=== PATIENT | female | born 1985 | race Caucasian/White ===

== ENCOUNTER 2017-06-06 14:09 | Emergency (ER) | payer OTHER, SELFPAY ==
[2017-06-06 14:10] VITALS: BP 145/92; PULSE 68; RESP 16; TEMP 36.8; O2SAT 100; BMI 24.1
--- NOTE | 2017-06-06 15:06 | US_ITS ---
STUDY: ULTRASOUND TRANSVAGINAL CLINICAL: Female, 31 years old. Pelvic pain TECHNIQUE: Transvaginal COMPARISON: None. FINDINGS: Normal uterine size measuring 7.8 x 4.0 x 3.9 cm in maximal craniocaudal dimension. There are no myometrial masses. Uterus is retroverted. Normal endometrial thickness measuring 6 mm. There are no endometrial masses, and there is no fluid in the endometrial cavity. Normal uterine cervix. Normal right ovary, measuring 4.1 x 3.6 x 2.2 cm. There is a dominant right ovarian cyst measuring 2.5 x 3.3 x 2.8 cm within omalley and through-transmission. Normal left ovary, measuring 3.2 x 1.8 x 1.5 cm. There are multiple follicles without a dominant cyst. There is a small amount of fluid in the pelvis. US/Transvaginal Non- IMPRESSION: Dominant right ovarian cyst measuring 3.5 x 3.3 x 2.8 cm without evidence of ovarian torsion. Could consider follow-up ultrasound in one to 2 menstrual cycles. Electronically Signed: Sonja Fabian MD at 20:30 EST Tel , Service support ,
--- NOTE | 2017-06-06 15:52 | ED.VISSUMM ---
- ER Visit Summary Date of Service: 06/06/17 Chief Complaint: Pelvic pain History of Present Illness: The patient is a [address] 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 States that she has right lower abdominal pain that began approximately 1 month ago. Is an aching pain is gradually gotten worse. It is 5 out of 10 currently and 8 out of 10 at worst. Is worsened by intercourse and relieved by NSAIDs. She denies any vaginal bleeding or discharge. She has had frequent urination without dysuria. She reports her last menstrual it was proximal me 3 weeks ago and was very heavy. She has never been . She does report that she is felt fatigued for the past month. Physical Examination: Vitals: Stable. Afebrile. General: Well-nourished and well-developed. Head: Normocephalic atraumatic. Neck: Supple, no lymphadenopathy. No JVD. Nontender. Cardiovascular: Regular rate and rhythm. No murmurs. Respiratory: No respiratory distress. Clear to auscultation bilaterally. Abdominal: Soft, moderate right adnexal tenderness, no pain at McBurney's point, nondistended, normal bowel sounds. No guarding, rebound, or peritoneal signs. Pelvic: Refused. Back: Nontender. Extremities: Nontender, no edema. Skin: Normal color, no rash. Neurologic: Alert and oriented ?3. Cranial nerves II through XII are intact. Normal strength and sensation. Psych: Normal affect. Test Results: Urinalysis is normal. Gonorrhea and Chlamydia are negative. test is negative. CBC is normal. Pelvic ultrasound shows a right ovarian cyst that is 3.5 x 3.3 x 2.8 cm with no torsion and good flow. Emergency Department Course and Treatment: Patient refused pain and nausea medications. She is resting comfortably. Treatment Plan: Patient was discussed with Dr. Calderon. She will be discharged instructions to follow-up in 1-2 weeks for another exam. She is placed on naproxen and given a prescription for 12 [place]. Return to the emergency department for any worsening symptoms. Disposition: To home in improved and stable condition. Impression: 1. Right ovarian cyst. This note was generated with [employer]ation software. It may contain incorrect words, spelling, and punctuation that were not noted in review of the chart prior to signing ED Disposition - Plan for ED Patient: Disposition: Home or Assisted Living Chief Complaint: Female C/O Instructions: ED Cyst Ovarian Prescriptions: Hydrocodone Bitart/Apap 5-325 [[place] 5/325] 1 - 2 tablet PO Q4H PRN PRN 3 Days #12 tablet PRN Reason: Pain Naproxen [Naprosyn] 500 mg PO BID PRN #20 tablet Referrals: Silva Calderon MD [STAFF PHYSICIAN] - 1-2 Weeks
[2017-06-06 16:18] LABS: Absolute Lymphocyte Count 3.46 X10^3/ul (0.83-4.51); Absolute Neutrophil Count 6.2 X10^3/uL (2.0-7.7); Basophil# 0.03 X10^3/uL; Basophil% 0.3 % (0-1); Eosinophil# 0.04 X10^3/uL; Eosinophils% 0.4 % (0-5); Hematocrit 41.6 % (37-47); Hemoglobin 14.3 g/dl (12.0-15.0); Lymphocyte # 3.46 X10^3/ul (4.0); Lymphocyte % 32.7 % (19-41); Mean Corp Hgb Conc 34.4 g/gl (32-36); Mean Corpuscular Volume 93.1 fL (81-99); Mean Platelet Vol. 9.5 fl (6.2-12.0); Monocyte# 0.79 X10^3/uL; Monocyte% 7.5 % (0-10); Neutrophil # 6.24 X10^3/uL (2.7-7.7); Neutrophil % 58.8 % (47-70); Platelet Count 253 K/mm3 (150-450); RBC Distribution Width CV 12.3 % (11.6-14.6); RBC Distribution Width SD 41.1 fl (35.1-43.9); Red Blood Count 4.47 M/mm3 (4.2-5.4); White Blood Count 10.6 K/mm3 (4.4-11.0)
[2017-06-06 16:22] LABS: POSITIVE COUNT NO; POSITIVE DIFFERENTIAL NO; POSITIVE MORPHOLOGY NO
[2017-06-06 16:30] LABS: Bacteria 0 SEEN /hpf (None Seen); Mucous, Urine 0 SEEN /hpf (<or=2+); Red Blood Cells-Urine 0 SEEN /hpf (0-5)
[2017-06-06 17:04] LABS: Color, Urine Yellow (Yellow); Glucose, Dipstick Normal (Normal); Ketone-Dipstick Negative (Negative); Leukocyte Esterase-Dipstick 25 /ul (Negative); Nitrite-Dipstick Negative (Negative); Occult Blood-Urine Negative /ul (Negative); Protein-Dipstick Negative (Negative); Specific Gravity, Urine 1.015 (1.002-1.030); Urine Bilirubin Dipstick Negative (Negative); Urine Clarity Sl. Cloudy (Clear); Urine Urobilinogen 1 mg/dl (Normal); Urine pH 6.5 (5.0 - 8.0)
[2017-06-06 17:05] LABS: Pregnancy, Serum, hCG Quali. NEGATIVE Negative (0-9 Nonpreg)
[2017-06-06 17:09] LABS: Chlamydia Trachomatis by PCR Negative (Negative); Neisserai gonorrhoeae by PCR Negative (Negative); Probe Check PASS; Sample Adequacy Control PASS; Specimen Processing Control PASS
[2017-06-06 17:16] LABS: Squamous Epithelial Cells - UA 0-5 SEEN /hpf (5-10)
[2017-06-06 17:19] LABS: White Blood Cells 0-5 SEEN /hpf (0-5)
[2017-06-06] MEDS: Ibuprofen 600 MG Tablet PO (18:05)
[2017-06-06 18:49] VITALS: PULSE 79; RESP 16; O2SAT 98
== END 2017-06-06 18:50 | disposition home or self-care (01) ==
PROVIDERS: Emergency Provider Emergency Medicine; Family Provider Family Medicine; PCP Family Medicine
DX: N83.201 Unspecified ovarian cyst, right side (principal); I10 Essential (primary) hypertension; F32.9 Major depressive disorder, single episode, unspecified; Z72.0 Tobacco use; Z79.899 Other long term (current) drug therapy
CPT/HCPCS: 36415; 76830; 81001; 84703; 85025; 87491; 87591; 93976; 99283

== ENCOUNTER → 2017-12-19 11:56 | Outpatient (CLI) | payer OTHER, SELFPAY ==
[2017-12-19 14:28] LABS: CRP 3.54 mg/L (0.0-3.0); Rheumatoid Factor < 10.0 IU/mL (<15)
[2017-12-19 14:47] LABS: Erythrocyte Sedimentation Rate 5 mm/hr (0-20)
[2017-12-19 15:12] LABS: HIV - WCH Non-Reactive (Nonreactive)
[2017-12-19 16:19] LABS: Chlamydia Trachomatis by PCR Negative (Negative); Probe Check PASS; Sample Adequacy Control PASS; Specimen Processing Control PASS
[2017-12-20 08:54] LABS: Hep B Surface Antibodies Reactive (.); Hep C Antibodies <0.1 s/co ratio (0.0-0.9)
[2017-12-29 04:06] LABS: Cytoplasmic Ab (C-ANCA) <1:20 titer (Neg:<1:20); QNTFERON TB Ag Minus Nil Value < 0 IU/mL (.); QNTFERON TB Ag Value 0.03 IU/mL (.); QNTFERON TB Mitogen Value > 10.00 IU/mL (.); QNTFERON TB Nil Value 0.04 IU/mL (.)
[2017-12-29 11:12] LABS: Angiotensin Convert Enzyme 23 U/L (14-82); HLA B27 Negative (.); Perinuclear Ab (P-ANCA) <1:20 titer (Neg:<1:20); QNTIFERON TB Gold Negative (Negative)
== END ==
PROVIDERS: Family Provider Family Medicine; PCP Family Medicine; Visit Provider Ophthalmology
DX: Z20.1 Contact with and (suspected) exposure to tuberculosis (principal)
CPT/HCPCS: 36415; 71046; 81374; 82164; 85652; 86038; 86140; 86256; 86431; 86480; 86703; 86706; 86803; 87491

== ENCOUNTER → 2018-03-16 21:41 | Outpatient (CLI) | payer OTHER, SELFPAY ==
[2018-03-16 08:38] VITALS: BMI 30.9
[2018-03-23 08:07] LABS: HPV Genotype 16, Aptima Negative (Negative)
[2018-03-23 15:48] LABS: HPV APTIMA, High Risk Positive (Negative); HPV Genotype 18,45 Aptima Negative (Negative)
== END ==
PROVIDERS: Family Provider Family Medicine; PCP Family Medicine; Referring Provider Nurse Practitioner Women's Health; Visit Provider Nurse Practitioner Women's Health
DX: Z12.4 Encounter for screening for malignant neoplasm of cervix (principal)
CPT/HCPCS: 87624; 88175; G0145

== ENCOUNTER → 2018-03-24 12:06 | Outpatient (CLI) | payer OTHER, SELFPAY ==
[2018-03-16 08:38] VITALS: BMI 30.9
--- NOTE | 2018-03-24 12:07 | US_ITS ---
STUDY: ULTRASOUND OF THE FEMALE PELVIS - COMPLETE REASON FOR EXAM: Female, 32 years old. Right ovarian cyst. LMP: None recently. TECHNIQUE: Transabdominal and transvaginal. TECHNICAL QUALITY: Adequate. COMPARISON: June 06, 2017. FINDINGS: The uterus is retroverted and is in a midline position. The uterus measures 6.1 x 4.3 x 3.3 cm. Normal uterine cervix. The endometrium measures 3 mm in thickness, and is hyperechoic. There is no demonstrated endometrial mass. There is no demonstrated myometrial mass. I.U.D. - The patient does not have an I.U.D. The right ovary is visualized. The right ovary measures 2.2 x 2.9 x 1.8 cm. Simple ovarian cyst measuring 1.1 x 0.9 x 0.7 cm decreased in size since the prior study. There is no visualized right adnexal mass or complex lesion. There is normal arterial and normal venous vascularity. The left ovary is visualized. The left ovary measures 2.7 x 1.8 x 2.0 cm. There is no left ovarian cyst or ovarian mass. There is no visualized left adnexal mass or complex lesion. There is normal arterial and normal venous vascularity. Trace free fluid adjacent to the fundus. The pre void volume of the bladder was 426 ml. US/Pelvic (Non ) IMPRESSION: 1.1 cm simple right ovarian cyst suggestive of a dominant follicle, decreased in size since the prior study. Trace free fluid adjacent to the uterus which is a nonspecific finding often related to a ruptured ovarian cyst. Otherwise negative exam. Electronically Signed: Rico Turpin MD at 6:04 EST , Service support ,
--- NOTE | 2018-03-24 12:07 | US_ITS ---
STUDY: ULTRASOUND OF THE FEMALE PELVIS - COMPLETE REASON FOR EXAM: Female, 32 years old. Right ovarian cyst. LMP: None recently. TECHNIQUE: Transabdominal and transvaginal. TECHNICAL QUALITY: Adequate. COMPARISON: June 06, 2017. FINDINGS: The uterus is retroverted and is in a midline position. The uterus measures 6.1 x 4.3 x 3.3 cm. Normal uterine cervix. The endometrium measures 3 mm in thickness, and is hyperechoic. There is no demonstrated endometrial mass. There is no demonstrated myometrial mass. I.U.D. - The patient does not have an I.U.D. The right ovary is visualized. The right ovary measures 2.2 x 2.9 x 1.8 cm. Simple ovarian cyst measuring 1.1 x 0.9 x 0.7 cm decreased in size since the prior study. There is no visualized right adnexal mass or complex lesion. There is normal arterial and normal venous vascularity. The left ovary is visualized. The left ovary measures 2.7 x 1.8 x 2.0 cm. There is no left ovarian cyst or ovarian mass. There is no visualized left adnexal mass or complex lesion. There is normal arterial and normal venous vascularity. Trace free fluid adjacent to the fundus. The pre void volume of the bladder was 426 ml. US/Transvaginal Non- IMPRESSION: 1.1 cm simple right ovarian cyst suggestive of a dominant follicle, decreased in size since the prior study. Trace free fluid adjacent to the uterus which is a nonspecific finding often related to a ruptured ovarian cyst. Otherwise negative exam. Electronically Signed: Rico Turpin MD at 6:04 EST , Service support ,
--- OUTSIDE RECORDS SUMMARY | 2018-05-06 03:44 | XMS RPT_ITS ---
:1985 Author Organization OHIP Support Name Relationship Address Phone [facility] Unavailable [address] + [place] [address] PAR[facility] OT[facility] Unavailable [address] + [place] [address] [facility] Unavailable [address] + [place] [address] [facility] Unavailable [address] + [place] [address] [facility] Unavailable [address] + [place] [address] [facility] Unavailable [address] + [place] [address] [facility] Unavailable [address] + [place] [address] [facility] Unavailable [address] + [place] [address] [facility] Unavailable [address] +[place] [address] [facility] Unavailable [address] +[place] [address] [facility] Unavailable [address] +[place] [address] [facility] Unavailable [address] + [place] [address] SILVESTRE GONZALEZ Unavailable [address] + [place] [address] [facility] Unavailable [address] +[place] [address] [facility] Unavailable [address] + [place] [address] SILVESTRE GONZALEZ Unavailable [address] + [place] [address] Care Team Providers Name Role Phone Abraham Ferreira Primary Care Unavailable Veronika Min Attending Unavailable Ferreira, Abraham Primary Care Unavailable Daniel De La Rosa Attending Unavailable Silva Calderon Attending Unavailable Ferreira, Abraham Referring Unavailable Ferreira, Abraham Primary Care Unavailable Lali, Pat Attending Unavailable Ferreira, Abraham Referring Unavailable Jennifer, George Attending Unavailable Jennifer, George Referring Unavailable Ferreira, Abraham Primary Care Unavailable [place], Pat Attending Unavailable Ferreira, Abraham Referring Unavailable Lali, Pta Attending Unavailable Ferreira, Abraham Primary Care Unavailable Lali, Pat Referring Unavailable [place], Pat Attending Unavailable Lali, Pat Referring Unavailable Ferreira, Abraham Primary Care Unavailable PROBLEMS PROBLEMS DATE TYPE CONDITION / CODE ATTENDING STATUS SOURCE 03/24/2018 Unknown N83.201 - Pat Escalera Active [facility] Unspecified Community ovarian cyst, Hospital right side / Repository N83.201(ICD-10) 03/17/2018 Unknown Z12.4 - Encounter Pat Escalera Active [facility] for screening for Community malignant Hospital neoplasm of Repository cervix / Z12.4(ICD-10) 12/22/2017 Unknown Z77.21 - Contact George Rodriguez Active [facility] with and Community (suspected) Hospital exposure to Repository potentially hazardous body fluids / Z77.21(ICD-10) 12/22/2017 Unknown V15.85 - Personal George Rodriguez Active [facility] history of Community contact with and Hospital (suspected) Repository exposure to potentially hazardous body fluids / V15.85(ICD-9) 06/06/2017 Unknown N83.209 - Daniel De La Rosa Active [place] Unspecified Community ovarian cyst, Hospital unspecified side Repository / N83.209(ICD-10) PROCEDURES PROCEDURES No Procedure Records FoundRESULTS RESULTS TRANSVAGINAL Observed: 03/24/2018 Status: F Source: [place] NON- 12:08 PM [facility] HOSPITAL REPOSITORY [facility] Imaging Services [address] [place] [address] Transvaginal Non- MR#: [id number] Acct: [id number] Name: LAKESHA OTOOLE Rep #: [id number] : 1985 F 32 From: Rico Turpin PCP: Abraham Ferreira MD Status: REG CLI Study: Transvaginal Non- Date of Exam: 03/24/18 Exam# [id number] Ordering Dr: Pat Escalera INSPECTOR MATERIALS AND PROCESSES-C STUDY: ULTRASOUND OF THE FEMALE PELVIS - COMPLETE REASON FOR EXAM: Female, 32 years old. Right ovarian cyst. LMP: None recently. TECHNIQUE: Transabdominal and transvaginal. TECHNICAL QUALITY: Adequate. COMPARISON: June 06, 2017. FINDINGS: The uterus is retroverted and is in a midline position. The uterus measures 6.1 x 4.3 x 3.3 cm. Normal uterine cervix. The endometrium measures 3 mm in thickness, and is hyperechoic. There is no demonstrated endometrial mass. There is no demonstrated myometrial mass. I.U.D. - The patient does not have an I.U.D. The right ovary is visualized. The right ovary measures 2.2 x 2.9 x 1.8 cm. Simple ovarian cyst measuring 1.1 x 0.9 x 0.7 cm decreased in size since the prior study. There is no visualized right adnexal mass or complex lesion. There is normal arterial and normal venous vascularity. The left ovary is visualized. The left ovary measures 2.7 x 1.8 x 2.0 cm. There is no left ovarian cyst or ovarian mass. There is no visualized left adnexal mass or complex lesion. There is normal arterial and normal venous vascularity. Trace free fluid adjacent to the fundus. The pre void volume of the bladder was 426 ml. US/Transvaginal Non- IMPRESSION: 1.1 cm simple right ovarian cyst suggestive of a dominant follicle, decreased in size since the prior study. Trace free fluid adjacent to the uterus which is a nonspecific finding often related to a ruptured ovarian cyst. Otherwise negative exam. Electronically Signed: Rico Turpin MD at 6:04 EST , Service support , CC: ORSA Escalera; Abraham Ferreira MD Pumper Helper: Signed PELVIC (NON ) Observed: 03/24/2018 Status: F Source: [place] 12:08 PM [facility] REPOSITORY [facility] Imaging Services [address] [place] [address] Pelvic (Non ) MR#: [id number] Acct: [id number] Name: LAKESHA OTOOLE Rep #: [id number] : 1985 F 32 From: Rico Turpin PCP: Abraham Ferreira MD Status: REG CLI Study: Pelvic (Non ) Date of Exam: 03/24/18 Exam# [id number] Ordering Dr: Pat Escalera INSPECTOR MATERIALS AND PROCESSES-C STUDY: ULTRASOUND OF THE FEMALE PELVIS - COMPLETE REASON FOR EXAM: Female, 32 years old. Right ovarian cyst. LMP: None recently. TECHNIQUE: Transabdominal and transvaginal. TECHNICAL QUALITY: Adequate. COMPARISON: June 06, 2017. FINDINGS: The uterus is retroverted and is in a midline position. The uterus measures 6.1 x 4.3 x 3.3 cm. Normal uterine cervix. The endometrium measures 3 mm in thickness, and is hyperechoic. There is no demonstrated endometrial mass. There is no demonstrated myometrial mass. I.U.D. - The patient does not have an I.U.D. The right ovary is visualized. The right ovary measures 2.2 x 2.9 x 1.8 cm. Simple ovarian cyst measuring 1.1 x 0.9 x 0.7 cm decreased in size since the prior study. There is no visualized right adnexal mass or complex lesion. There is normal arterial and normal venous vascularity. The left ovary is visualized. The left ovary measures 2.7 x 1.8 x 2.0 cm. There is no left ovarian cyst or ovarian mass. There is no visualized left adnexal mass or complex lesion. There is normal arterial and normal venous vascularity. Trace free fluid adjacent to the fundus. The pre void volume of the bladder was 426 ml. US/Pelvic (Non ) IMPRESSION: 1.1 cm simple right ovarian cyst suggestive of a dominant follicle, decreased in size since the prior study. Trace free fluid adjacent to the uterus which is a nonspecific finding often related to a ruptured ovarian cyst. Otherwise negative exam. Electronically Signed: Rico Turpin MD at 6:04 EST , Service support , CC: ROSA Escalera; Abraham Ferreira MD Pumper Helper: Signed MARKETING PROPOSAL SPECIALIST OFFICE VISIT Observed: 03/16/2018 Status: F Source: [place] REPORT 9:19 AM [facility] [address] [place] [address] OFFICE VISIT Date of Service: 03/16/18 MR#: [id number] Acct: [id number] Name: LAKESHA OTOOLE Rep #: [id number] : 1985 Provider: ROSA Escalera Age/Sex: 32/F Location: [facility] [place] Status: Signed Intake Vital Signs03/16/18 Height 5 ft 6 in 03/16/18 Weight: 191 lb 6 oz 03/16/18 Body Mass Index (BMI) 30.9 03/16/18 Blood Pressure 124/82 H Intake Visit Reasons: NIGHT SWEATS/RIGHT OVARIAN PAIN WITH CYCLES Cocoa Roaster Required: No Is patient in pain?: No Allergies zolpidem [From Ambien] Allergy (Mild, Verified 03/16/18 08:39) Other Medications Metoprolol(XL)Succ [Toprol Xl (Beta Kasia)] 100 mg PO DAILY 09/23/14 [History Confirmed 03/16/18] Aripiprazole [Abilify] 2 mg PO DAILY 06/06/17 [History Confirmed 03/16/18] Clonazepam [Klonopin] 0.5 mg PO QHS PRN PRN 06/06/17 [History Confirmed 03/16/18] Hydrocodone Bitart/Apap 5-325 [Quincy 5/325] 1 - 2 tab PO Q4H PRN PRN 3 Days #12 tab 06/06/17 [Rx Confirmed 03/16/18] Naproxen [Naprosyn] 500 mg PO BID PRN #20 tab 06/06/17 [Rx Confirmed 03/16/18] Venlafaxine HCl [Effexor] 75 mg PO BID 06/06/17 [History Confirmed 03/16/18] buPROPion XL [Wellbutrin Xl] 150 mg PO DAILY 06/06/17 [History Confirmed 03/16/18] trazodone 150 mg tablet 150 mg PO BID 06/11/17 [History Confirmed 03/16/18] levonorgestrel 0.15 mg-ethinyl estradiol 0.03 mg tablet 1 tab PO DAILY #84 tab 03/16/18 [Rx Confirmed 03/16/18] Is last menstrual period known: No Post menopausal: No Patient : No : No Nurse's Note: Pt. states menses is random and no set time or length of time once started PFSH Medical History Anxiety and depression (Acute) hypertension (Acute) Surgical History Benign tumor of tongue (Acute) Family History Grandmother Breast cancer Lupus Diabetes Cancer Thyroid Mother Multiple sclerosis Uncle perfueria Diabetes Father Diabetes Social History Smoking Status: Current every day smoker alcohol intake: current details: social substance use type: does not use caffeine: Yes what type of physical activity do you participate in: none seatbelt use: always do you feel safe at home: Yes additional social history: Patient works at the [employer] Professor HPI NIGHT SWEATS/RIGHT OVARIAN PAIN WITH CYCLES: Details: LAKESHA OTOOLE is a 32 year old who presents for new patient with lower right pelvic pain that has been ongoing since May. At that time she had right ovarian cyst. States pain improved and now has returned. She is on Aviane for control of cyst but last 1-2 months has had spotting almost every day and does not miss pills. She does still smoke. Her BP has been controlled with meds. She is in a long term care social worker relationship and declines STD testing. She is having vaginal odor and has had BV in past Female Reproductive History Questions: Metorrhagia: No, Sexually active: Yes, Dyspareunia: No, PCB: No Pregancy History 0 Elective abortions Hx Para Spontaneous abortions ROS Const Constitutional: Reports system reviewed and no additional complaints, except as docu GI GI: Denies abdominal pain or change in bowel habits Exam Const General: cooperative, healthy appearing, no acute distress Nutritional Appearance: average body habitus Orientation: oriented x3 General: bladder normal to palpation External Female Exam: normal external appearance, normal appearance of the urethra Urethra: normal appearance of the urethra Speculum Exam - Vagina: normal appearance of the vagina, normal vaginal discharge, nontender, no lesions Speculum Exam - Cervix: normal appearance of the cervix (pap screen), other (smooth, nonfriable) Bimanual Exam- Vagina AND Uterus: bladder normal to palpation, normal bimanual exam, uterine size normal, uterine shape normal, uterine mobility normal, uterus non-tender Bimanual Exam- Adnexa, other: normal adnexae, no adnexal masses, adnexae non-tender Assessment AND Plan Problems 1. Right ovarian cyst N83.201 repeat us in end of june beginning of july 2. Pelvic pain R10.2 3. Pap smear for cervical cancer screening Z12.4 4. Oral contraceptive pill surveillance Z30.41 Plan Will change to Levora next cycle Pelvic ultrasound Pap HEMANTH BV-call only if positive She will report back if OCP not helpful or further irregular bleeding with OCP Discussed risks of smoking and OCP use. She wishes to proceed. BP is controlled RTO 1 year, prn with problems Orders Orders: Medications New: Discontinued: levonorgestrel-ethinyl estrad 0.1-20 mg-mcg (Aviane) Discon1 tab PO QDAY 28 tabs 12RF tinued Reason: Order Changed Coding Level of Care Code Off vis,new,level 3 Diagnoses Right ovarian cyst N83.201 Pelvic pain R10.2 Pap smear for cervical cancer screening Z12.4 Oral contraceptive pill surveillance Z30.41 03/16/18918 <Electronically signed by Pat ORDAZ> Date Pat ORDAZ Cosigner Signature: Date (if applicable) CC: PAP IG HPV APTIMA Collected: 03/16/2018 Status: F Source: [place] 16/18,45 9:00 AM [facility] REPOSITORY Order Comment: CYTOLOGY INFORMATION: - CLINICAL INFORMATION: ANNUAL - DATE LMP/MENOPAUSE: - COLLECTION VIAL: Thin Prep Vial - HEEL SANDER RUBBER SOURCE: CERVICAL - COLLECTION TECHNIQUE: BRUSH/SPATULA Specimen Comment: [id number] Specimen Comment: No. of containers..01 ThinPrep Vial TYPE CODE TESTS RESULT OUT OF RANGE REFERENCE UNITS LAB L7400.0800 . Normal DIAGN Comment Result Comment: NEGATIVE FOR INTRAEPITHELIAL LESION AND MALIGNANCY. FUNGAL ORGANISMS MORPHOLOGICALLY CONSISTENT WITH SHABANA SPECIES ARE PRESENT. LAB L7400.0900 . Normal ADEQ Comment Result Comment: Satisfactory for evaluation. Endocervical and/or squamous metaplastic cells (endocervical component) are present. LAB L7400.1400 . Normal PERFORM Comment Result Comment: eLtty Barker, Principal Java Software Engineer (ASCP) LAB L7400.2575 . Normal TEST METHOD Comment Result Comment: This liquid based ThinPrep(R) pap test was screened with the use of an image guided system. LAB L7400.2600 . Normal . COMM LAB L7400.2700 . Normal PAPSMR Comment Result Comment: The Pap smear is a screening test designed to aid in the detection of premalignant and malignant conditions of the uterine cervix. It is not a diagnostic procedure and should not be used as the sole means of detecting cervical cancer. Both false-positive and false-negative reports do occur. LAB L7400.2760 Negative High HPV APTIMA, HR Positive Result Comment: This test detects fourteen high-risk HPV types (16/18/31/33/35/39/45/ 51/52/56/58/59/66/68) without differentiation. LAB L7400.2940 Negative Normal HPV Genotype Negative 16 LAB L7400.2945 Negative Normal HPV Viki 18,45 Negative Result Comment: Performed at: [address] [id number] Forms Designer: Meghana Mulligan MD, Phone: [phone] Performed at: =[address], [place] [id number] Forms Designer: Meghana Mulligan MD, Phone: [phone] Performed By: #### L7400.0280 #### [facility] (refer to report for specific site) refer to report for address and phone number CHEST PA AND LATERAL Observed: 12/19/2017 Status: F Source: [place] 12:36 PM [facility] REPOSITORY [facility] Imaging Services [address] [place] [address] Chest PA and Lateral MR#: [id number] Acct: [id number] Name: LAKESHA OTOOLE Rep #: [id number] : 1985 F 32 From: Aramis Singer MD PCP: Abraham Ferreira MD Status: REG CLI Study: Chest PA and Lateral Date of Exam: 12/19/17 Exam# [id number] Ordering Dr: George Rodriguez MD STUDY: X-RAY CHEST REASON FOR EXAM: Female, 32 years old. Possible TB exposure TECHNIQUE: 2 views COMPARISON: None. FINDINGS: The lungs are clear and expanded. No fibrocavitary or fibrocalcific changes in the lungs There is no demonstrated pleural abnormality. Normal size heart. Normal mediastinum and korin. Normal visualized pulmonary arteries. Normal visualized aortic arch and descending thoracic aorta. Normal visualized thoracic spine. Normal visualized ribs, clavicles, and shoulders. There is no demonstrated abnormality of the visualized soft tissue structures of the upper abdomen. RAD/Chest PA and Lateral IMPRESSION: Normal x-ray examination of the chest. No acute findings in the lung Electronically Signed: Aramis Singer, at 23:52 EDT Tel , Service support , CC: Abraham Ferreira MD; George Rodriguez MD Pumper Helper: Signed HIV - [facility] Collected: 12/19/2017 Status: F Source: [place] 12:21 PM [facility] REPOSITORY TYPE CODE TESTS RESULT OUT OF RANGE REFERENCE UNITS LAB L3890.6005 Nonreactive Normal HIV - [facility] Non-Reactive Performed By: #### L3890.6005 #### [facility] [address] [place], [place], [address] CHLAMYDIA PCR (WC) Collected: 12/19/2017 Status: F Source: [place] 12:18 PM [facility] REPOSITORY Order Comment: Order Date: 12/11/17 Order Info: [id number] - CHLDNAP TYPE CODE TESTS RESULT OUT OF RANGE REFERENCE UNITS LAB L8200.2100 Negative Normal Chlam Negative Trac PCR Performed By: #### L8200.2019 #### [facility] [address] [place], [place], [address] #### L3100.0528, L3100.0625 #### [facility] (refer to report for specific site) refer to report for address and phone number HEP B SURFACE Collected: 12/19/2017 Status: F Source: [place] ANTIBODIES 12:18 PM [facility] REPOSITORY Order Comment: Order Date: 12/11/17 Order Info: [id number] - HEBSAB Order Info: 0363-1 - HECAB TYPE CODE TESTS RESULT OUT OF RANGE REFERENCE UNITS LAB L3100.0528 . Normal Hep B Reactive Merlin AB Result Comment: Non Reactive: Inconsistent with immunity, less than 10 mIU/mL Reactive: Consistent with immunity, greater than 9.9 mIU/mL Performed By: #### L8200.2019 #### [facility] [address] [place], [place], [address] #### L3100.0528, L3100.0625 #### [facility] (refer to report for specific site) refer to report for address and phone number HEPATITIS C ANTIBODIES Collected: 12/19/2017 Status: F Source: [place] 12:18 PM [facility] REPOSITORY Order Comment: Order Date: 12/11/17 Order Info: [id number] - HEBSAB Order Info: 0363-1 - HECAB TYPE CODE TESTS RESULT OUT OF RANGE REFERENCE UNITS LAB L3100.0650 0.0-0.9 s/co ratio Normal HEP C AB <0.1 Result Comment: Negative: < 0.8 Indeterminate: 0.8 - 0.9 Positive: > 0.9 The CDC recommends that a positive HCV antibody result be followed up with a HCV Nucleic Acid Amplification test ([id number]). Performed at: [facility] [id number] Forms Designer: Taran Lantigua PhD, Phone: [phone] Performed By: #### L8200.2020 #### [facility] [address] [facility] [place], [address] #### L3100.0528, L3100.0625 #### [facility] (refer to report for specific site) refer to report for address and phone number CRP Collected: 12/19/2017 Status: F Source: [place] 12:02 [facility] REPOSITORY TYPE CODE TESTS RESULT OUT OF RANGE REFERENCE UNITS LAB L501.6710 0.0-3.0 mg/L High 3.54 C-REACTIVE PROT Result Comment: C-Reactive Protein (CRP) provides useful information for the diagnosis, therapy and monitoring of inflammatory processes and associated diseases. For the evaluation of Relative Risk for Cardiovascular Disease, a High Sensitivity CRP (HSCRP) should be ordered. Performed By: #### L501.6710, L505.7010 #### [facility] [address] [place] [address]. [facility] [address] RHEUMATOID FACTOR Collected: 12/19/2017 Status: F Source: [place] 12:02 PM [facility] REPOSITORY TYPE CODE TESTS RESULT OUT OF RANGE REFERENCE UNITS LAB L505.7010 <15 IU/mL Normal RHEUMATOID FAC < 10.0 Performed By: #### L501.6710, L505.7010 #### [facility] [address] [facility] [place], [address] ERYTHROCYTE SED RATE Collected: 12/19/2017 Status: F Source: [place] 12:02 PM [facility] REPOSITORY TYPE CODE TESTS RESULT OUT OF RANGE REFERENCE UNITS LAB L102.0000 0-20 mm/hr Normal SED RATE 5 Performed By: #### L101.9900 #### [facility] [address] [place], [address] MISCELLANEOUS LAB Collected: 12/19/2017 Status: F Source: [place] PROCEDURE 12:02 PM [facility] REPOSITORY Order Comment: Comments: [id number] TRP PALLIDUM AB RT TIGER Test(s) Ordered: [id number] TRP PALLIDUM AB RT TIGER TYPE CODE TESTS RESULT OUT OF RANGE REFERENCE UNITS LAB L801.1541 Normal [facility] LAB TEST Result Comment: TEST RESULT LIMITS Treponema pallidum Antibodies Negative Negative TESTING PERFORMED AT [facility]. ORIGINAL REPORT ON FILE IN LAB CONTAINS ADDITIONAL TEST SITE INFORMATION. Performed By: #### L801.1541 #### [facility] [address] [place], [address] ANGIOTENSIN CONVERT Collected: 12/19/2017 Status: F Source: [place] ENZYME 12:02 PM [facility] REPOSITORY TYPE CODE TESTS RESULT OUT OF RANGE REFERENCE UNITS LAB L3100.6900 14-82 U/L [place] [id number] Result Comment: Performed at: - [facility] [id number] Forms Designer: Taran Lantigua PhD, Phone: [phone] Performed at: - [facility] [id number] Forms Designer: Stephon Baer PhD, Phone: [phone] Performed By: #### L3100.6900, L3300.1200, L3400.7000, L3410.1400 #### [facility] (refer to report for specific site) refer to report for address and phone number ANCA Collected: 12/19/2017 Status: F Source: [place] 12:02 PM [facility] REPOSITORY TYPE CODE TESTS RESULT OUT OF RANGE REFERENCE UNITS LAB L3300.1225 Neg:<1:20 titer CYTOPLASMIC Normal Ab <1:20 LAB L3300.1250 Neg:<1:20 titer PERINUCLEAR Normal Ab <1:20 Result Comment: The presence of positive fluorescence exhibiting P-ANCA or C-ANCA patterns alone is not specific for the diagnosis of Tk's Granulomatosis (WG) or microscopic polyangiitis. Decisions about treatment should not be based solely on ANCA IFA results. The International ANCA Group Consensus recommends follow up testing of positive sera with both ID- 3 and MPO-ANCA enzyme immunoassays. As many as 5% serum samples are positive only by EIA. Ref. AM J Clin Pathol 1999;111:507-513. LAB L3300.1285 Neg:<1:20 titer Normal Atypical pANCA <1:20 Result Comment: The atypical pANCA pattern has been observed in a significant percentage of patients with ulcerative colitis, primary sclerosing cholangitis and autoimmune hepatitis. Performed By: #### L3100.6900, L3300.1200, L3400.7000, L3410.1400 #### [facility] (refer to report for specific site) refer to report for address and phone number QUANTIFERON TB-GOLD Collected: 12/19/2017 Status: F Source: [place] 12:02 [facility] REPOSITORY TYPE CODE TESTS RESULT OUT OF RANGE REFERENCE UNITS LAB L3400.7025 Negative Normal QFT Negative TB GOLD Result Comment: The specimen received for QuantiFERON testing was incubated by the ordering institution. Specific procedures outlined in our Directory of Services and in the package insert for the QuantiFERON Gold (In Tube) test must be followed to enable for proper stimulation of cells for the production of interferon gamma. LAB L3400.7035 . Normal QFT TB Comment POS CRIT Result Comment: To be considered positive a specimen should have a TB Ag minus Nil value greater than or equal to 0.35 IU/mL and in addition the TB Ag minus Nil value must be greater than or equal to 25% of the Nil value. There may be insufficient information in these values to differentiate between some negative and some indeterminate test values. LAB L3400.7045 . IU/mL Normal QFT TB AB 0.03 VALUE LAB L3400.7055 . IU/mL Normal QFT NIL VALUE 0.04 LAB L3400.7065 . IU/mL > Normal QFT MITOGEN 10.00 EVELAI LAB L3400.7075 . IU/mL < Normal QFT AG - NIL 0 LAB L3400.7085 . Normal QFT TB INTER Comment Result Comment: The QuantiFERON TB Gold (in Tube) assay is intended for use as an aid in the diagnosis of TB infection. Negative results suggest that there is no TB infection. In patients with high suspicion of exposure, a negative test should be repeated. A positive test indicates infection with Mycobacterium tuberculosis. Among individuals without tuberculosis infection, a positive test may be due to exposure to M. kansasii, M. szulgai or M. marinum. On the Internet, go to cdc.gov/tb for further details. Performed By: #### L3100.6900, L3300.1200, L3400.7000, L3410.1400 #### [facility] (refer to report for specific site) refer to report for address and phone number HLA B27 Collected: 12/19/2017 Status: F Source: [place] 12:02 PM [facility] REPOSITORY TYPE CODE TESTS RESULT OUT OF RANGE REFERENCE UNITS LAB L3410.1500 . Normal HLA Negative B27 Result Comment: HLA-B*27 Negative B27 allele interpretation for all loci based on IMGT/HLA database version 3.27 This test was developed and its performance characteristics determined by [facility]. It has not been cleared or approved by the Food and Drug Administration. [facility] CLIA ID Number [id number] This test was performed using PCR (Polymerase Chain Reaction)/SSOP (Sequence Specific Oligonucleotide Probes) technique. SBT (Sequence Based Typing) and/or SSP (Sequence Specific Primers) may be used as supplemental methods when necessary. Please contact [facility] Customer Service at if you have any questions. Director of [facility] Laboratory Dr Stephon Baer, PhD Performed By: #### L3100.6900, L3300.1200, L3400.7000, L3410.1400 #### [facility] (refer to report for specific site) refer to report for address and phone number ANTINUCLEAR ANTIBODY, Collected: 12/19/2017 Status: F Source: [place] IFA 11:56 AM [facility] REPOSITORY TYPE CODE TESTS RESULT OUT OF RANGE REFERENCE UNITS LAB L3100.8000 Normal NADYA test Result Comment: TEST RESULT LIMITS Antinuclear Antibodies, IFA Negative Negative <1:80 Borderline 1:80 Positive >1:80 TESTING PERFORMED AT [facility]. ORIGINAL REPORT ON FILE IN LAB CONTAINS ADDITIONAL TEST SITE INFORMATION. Performed By: #### L3100.7950 #### [facility] (refer to report for specific site) refer to report for address and phone number [employer]ETING PROPOSAL SPECIALIST OFFICE VISIT Observed: 06/11/2017 Status: F Source: [place] REPORT 9:54 PM [facility] 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 Is patient in pain?: Yes Allergies zolpidem [From Ambien] Allergy (Mild, Verified 06/11/17 11:14) Other Medications Metoprolol(XL)Succ [Toprol Xl (Beta Kasia)] 100 mg PO DAILY 09/23/14 [History Confirmed 06/11/17] Aripiprazole [Abilify] 2 mg PO DAILY 06/06/17 [History Confirmed 06/11/17] BuPROPion (XL) [Wellbutrin Xl] 150 mg PO DAILY 06/06/17 [History Confirmed 06/11/17] Clonazepam [Klonopin] 0.5 mg PO QHS PRN PRN 06/06/17 [History Confirmed 06/11/17] Hydrocodone Bitart/Apap 5-325 [Quincy 5/325] 1 - 2 tab PO Q4H PRN PRN 3 Days #12 tab 06/06/17 [Rx Confirmed 06/11/17] Naproxen [Naprosyn] 500 mg PO BID PRN #20 tab 06/06/17 [Rx Confirmed 06/11/17] Venlafaxine HCl [Effexor] 75 mg PO BID 06/06/17 [History Confirmed 06/11/17] levonorgestrel-ethinyl estradiol 0.1 mg-20 mcg tablet 1 tab PO QDAY #28 tab 06/11/17 [Rx Confirmed 06/11/17] metronidazole 500 mg tablet 500 mg PO BID 7 Days #14 tab 06/11/17 [Rx Confirmed 06/11/17] trazodone 150 mg tablet 150 mg PO BID 06/11/17 [History Confirmed 06/11/17] Is last menstrual period known: Yes Last Menstral Period: 06/10/17 Post menopausal: No Patient : No : No PFSH Medical History Anxiety and depression (Acute) Benign tumor of tongue (Acute) hypertension (Acute) Family History Grandmother Breast cancer Lupus Diabetes Cancer Thyroid Mother Multiple sclerosis Uncle perfueria Diabetes Father Diabetes Social History Smoking Status: Current every day smoker alcohol intake: current details: social substance use type: does not use caffeine: Yes what type of physical activity do you participate in: none seatbelt use: always do you feel safe at home: Yes additional social history: Patient works at the [employer] Professor HPI ER follow up: Details: LAKESHA OTOOLE is a 31 year old who presents for a month long history of right sided lower pelvic pain. she had an us done in the ER that showed a right 3 cm cyst on the ovary with no evidence of torsion. Intermittently right lower pain dull aching at times changed to sharp shooting stabbing, now throbbing. This limits her activities at work. She hasn't had this before, she was on continuous progestin control for 5 years and she had breakthrough bleeding for the last several months and then stopped taking it. Female Reproductive History Last Menstral Period: 06/10/17 Pregancy History 0 Elective abortions Hx Para Spontaneous abortions ROS Const Constitutional: Reports system reviewed and no additional complaints, except as docu GI GI: Reports as per HPI : Reports as per HPI Exam Const General: cooperative, healthy appearing, comfortable, no acute distress, well developed Nutritional Appearance: average body habitus Orientation: alert HENMT Head: normal to inspection, normocephalic Neck Neck: normal visual inspection, trachea midline Thyroid: thyroid normal Resp Effort AND Inspection: normal respiratory effort GI Inspection: normal to inspection, non-distended Palpation: soft, no hepatosplenomegaly Skin General: no rashes or lesions noted Assessment AND Plan Problems 1. Right ovarian cyst N83.201 repeat us in end of june beginning of july Plan discussed with patient likely diagnosis of hemorrhagic cyst, reveiwed torsion precautions and recommend anti inflammatories and fu imaging. discussed control and patient would like to go on for cycle control. encouraged tobacco cessation and control of HTN. discussed risk of blood clots on pill and recommend bp follow up. Orders Orders: Medications New: Coding Level of Care Code Off vis,new,level 4 Diagnoses Right ovarian cyst N83.201 06/11/17 2154 <Electronically signed by Silva Calderon MD> Date Silva Calderon MD Cosigner Signature: Date (if applicable) CC: EMERGENCY DEPARTMENT Observed: 06/09/2017 Status: F Source: [place] SUMMARY 1:11 AM [facility] REPOSITORY [facility] Medical Records Department [address] [place] [address] Emergency Department Summary 06/06/17 1552 MR#: [id number] Acct: [id number] Name: LAKESHA OTOOLE Rep #: [id number] : 1985 31 From: Daniel De La Rosa MD PCP: Abraham Ferreira MD Status: DEP ER - ER Visit Summary Date of Service: 06/06/17 Chief Complaint: Pelvic pain History of Present Illness: The patient is a [address] 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 States that she has right lower abdominal pain that began approximately 1 month ago. Is an aching pain is gradually gotten worse. It is 5 out of 10 currently and 8 out of 10 at worst. Is worsened by intercourse and relieved by NSAIDs. She denies any vaginal bleeding or discharge. She has had frequent urination without dysuria. She reports her last menstrual it was proximal me 3 weeks ago and was very heavy. She has never been . She does report that she is felt fatigued for the past month. Physical Examination: Vitals: Stable. Afebrile. General: Well-nourished and well-developed. Head: Normocephalic atraumatic. Neck: Supple, no lymphadenopathy. No JVD. Nontender. Cardiovascular: Regular rate and rhythm. No murmurs. Respiratory: No respiratory distress. Clear to auscultation bilaterally. Abdominal: Soft, moderate right adnexal tenderness, no pain at McBurney's point, nondistended, normal bowel sounds. No guarding, rebound, or peritoneal signs. Pelvic: Refused. Back: Nontender. Extremities: Nontender, no edema. Skin: Normal color, no rash. Neurologic: Alert and oriented 3. Cranial nerves II through XII are intact. Normal strength and sensation. Psych: Normal affect. Test Results: Urinalysis is normal. Gonorrhea and Chlamydia are negative. test is negative. CBC is normal. Pelvic ultrasound shows a right ovarian cyst that is 3.5 x 3.3 x 2.8 cm with no torsion and good flow. Emergency Department Course and Treatment: Patient refused pain and nausea medications. She is resting comfortably. Treatment Plan: Patient was discussed with Dr. Calderon. She will be discharged instructions to follow-up in 1-2 weeks for another exam. She is placed on naproxen and given a prescription for 12 Quincy. Return to the emergency department for any worsening symptoms. Disposition: To home in improved and stable condition. Impression: 1. Right ovarian cyst. This note was generated with [employer] software. It may contain incorrect words, spelling, and punctuation that were not noted in review of the chart prior to signing ED Disposition - Plan for ED Patient: Disposition: Home or Assisted Living Chief Complaint: Female C/O Instructions: ED Cyst Ovarian Prescriptions: Hydrocodone Bitart/Apap 5-325 [Quincy 5/325] 1 - 2 tablet PO Q4H PRN PRN 3 Days #12 tablet PRN Reason: Pain Naproxen [Naprosyn] 500 mg PO BID PRN #20 tablet Referrals: Silva Calderon MD [STAFF PHYSICIAN] - 1-2 Weeks What to do if you have Problems For any increased pain, shortness of breath, bleeding, nausea or vomiting, chest pain, or any unexpected problems, contact your Primary Care Provider. Call [facility] ([phone]) or report to the closest Emergency Room. Call 911 if necessary. 06/09/17 0111 <Electronically signed by Daniel De La Rosa MD> Date Daniel De La Rosa MD Cosigner Signature (If Indicated): Date CC: Abraham Ferreira MD CBC W/DIFF, AUTOMATED Collected: 06/06/2017 Status: F Source: HAYLEE 4:06 PM [facility] REPOSITORY TYPE CODE TESTS RESULT OUT OF RANGE REFERENCE UNITS LAB L100.1000 4.4-11.0 K/mm3 Normal WBC 10.6 LAB L100.1200 4.2-5.4 M/mm3 Normal RBC 4.47 LAB L100.1300 12.0-15.0 g/dl Normal HGB 14.3 LAB L100.1400 37-47 % Normal HCT 41.6 LAB L100.1500 81-99 fL Normal MCV 93.1 LAB L100.1600 27.0-32.0 pg Normal MCH 32.0 LAB L100.1700 32-36 g/gl Normal MCHC 34.4 LAB L100.1810 11.6-14.6 % Normal RDW CV 12.3 LAB L100.1820 35.1-43.9 fl Normal RDW SD 41.1 LAB L100.1900 150-450 K/mm3 Normal PLT 253 LAB L100.2000 6.2-12.0 fl Normal MPV 9.5 LAB L100.2100 47-70 % Normal NEUT% 58.8 LAB L100.2200 19-41 % Normal LY% 32.7 LAB L100.2300 0-10 % Normal MONO% 7.5 LAB L100.2400 0-5 % Normal EO% 0.4 LAB L100.2500 0-1 % Normal BASO% 0.3 LAB L100.2550 0.0-0.9 % Normal IM GRAN % 0.300 Result Comment: IG% - Immature Granulocytes (promyelocytes, myelocytes and metamyelocytes) > 1% indicates that a LEFT SHIFT is Present. LAB L100.2620 2.0-7.7 X10 3/uL Normal Absolute Neut 6.2 LAB L100.2720 0.83-4.51 X10 3/ul Normal Absolute Lymph 3.46 Performed By: #### L100.0100 #### [facility] [address] [place], [place], [address] ,SERUM,HCG QUALI. Collected: Status: F Source: RIC[place]AND 06/06/2017 4:06 PM [facility] REPOSITORY TYPE CODE TESTS RESULT OUT OF REFERENCE UNITS RANGE LAB L700.7000 0-9 Nonpreg Negative Normal HCGSQUAL NEGATIVE LAB L700.6700 =>Qualitative mIU/mL Normal HCG Qual < 1 triggr Performed By: #### L700.6800 #### [facility] [address] [place], [place], [address] CT/NG WCH BY PCR Collected: 06/06/2017 Status: F Source: R[place] 3:20 PM [facility] REPOSITORY Order Comment: Order Date: 06/06/17 Has pt arrived? Y TYPE CODE TESTS RESULT OUT OF RANGE REFERENCE UNITS LAB L8200.2100 Negative Normal Chlam Negative Trac PCR LAB L8200.2200 Negative Normal NG by Negative PCR Performed By: #### L8200.1999 #### [facility] [address] [place], [address] URINALYSIS, COMPLETE Collected: 06/06/2017 Status: F Source: R[place] 3:20 PM [facility] REPOSITORY Order Comment: Order Date: 06/06/17 How was Urine Obtained? MANAGER OF INTERNAL AUDIT TO SPECIFY TYPE CODE TESTS RESULT OUT OF RANGE REFERENCE UNITS LAB L400.3000 Yellow COLOR Normal Yellow LAB L400.3050 Clear Normal CLARITY Sl. Cloudy LAB L400.3200 Normal mg/dl Normal GLUCOSE, UR Normal LAB L400.3300 Negative mg/dL Normal BILIRUBIN URINE Negative LAB L400.3400 Negative mg/dl Normal KETONE UR Negative LAB L400.3465 1.002-1.030 Normal SP.GR. DIPSTX 1.015 LAB L400.3550 5.0 - 8.0 pH UR Normal 6.5 LAB L400.3600 Negative mg/dl PROT Normal DIPSTX Negative LAB L400.3700 Normal mg/dl High 1 UROBILI LAB L400.3750 Negative Normal NITRITE UR Negative LAB L400.3780 Negative /ul Normal OCCULT BLOOD-UR Negative LAB L400.3800 Negative /ul High LEUK 25 ESTERASE LAB L400.4050 0-5 /hpf WBC Normal 0-5 SEEN LAB L400.4100 0-5 /hpf 0 Normal RBC-UA SEEN LAB L400.4150 5-10 /hpf SQUAM Normal EPI 0-5 SEEN LAB L400.4300 None Seen /hpf 0 Normal BACTERIA SEEN LAB L400.4350 <or=2+ /hpf 0 Normal MUCUS, URINE SEEN Performed By: #### L400.0001 #### [facility] [address] [place], [address] TRANSVAGINAL Observed: 06/06/2017 Status: F Source: HAYLEE NON- 3:07 PM [facility] REPOSITORY [facility] Imaging Services [address] [place] [address] Transvaginal Non- MR#: [id number] Acct: [id number] Name: LAKESHA OTOOLE Rep #: [id number] : 1985 F 31 From: Sonja Fabian MD PCP: Abraham Ferreira MD Status: DEP ER Study: Transvaginal Non- Date of Exam: 06/06/17 Exam# [id number] Ordering Dr: Daniel De La Rosa MD STUDY: ULTRASOUND TRANSVAGINAL CLINICAL: Female, 31 years old. Pelvic pain TECHNIQUE: Transvaginal COMPARISON: None. FINDINGS: Normal uterine size measuring 7.8 x 4.0 x 3.9 cm in maximal craniocaudal dimension. There are no myometrial masses. Uterus is retroverted. Normal endometrial thickness measuring 6 mm. There are no endometrial masses, and there is no fluid in the endometrial cavity. Normal uterine cervix. Normal right ovary, measuring 4.1 x 3.6 x 2.2 cm. There is a dominant right ovarian cyst measuring 2.5 x 3.3 x 2.8 cm within omalley and through-transmission. Normal left ovary, measuring 3.2 x 1.8 x 1.5 cm. There are multiple follicles without a dominant cyst. There is a small amount of fluid in the pelvis. US/Transvaginal Non- IMPRESSION: Dominant right ovarian cyst measuring 3.5 x 3.3 x 2.8 cm without evidence of ovarian torsion. Could consider follow-up ultrasound in one to 2 menstrual cycles. Electronically Signed: Sonja Fabian MD at 20:30 EST Tel , Service support , CC: Abraham Ferreira MD; Daniel De La Rosa MD Pumper Helper: Signed ALLERGIES ALLERGIES DATE TYPE / CODE NAME / CODE REACTION SEVERITY SOURCE 03/16/2018 Drug zolpidem/F006 Other [place] [facility] Allergy/4160 552340(RXNO Hospital 30363(SNOMED ) Repository CT) 05/02/2017 Drug No Known Unknown [facility] Allergy/4160 Allergies/F00 Hospital 10575(SNOMED 5691979(RXNOR Repository CT) M) ENCOUNTERS ENCOUNTERS ADMIT/DISCHARGE ACCOUNT ADMITTING ENCOUNTER LOCATION SOURCE NUMBER CLASS 03/24/2018 [id number] Ambulatory [facility] [facility] 0 [facility] ing:OPUS Repository 03/16/2018 [id number] Ambulatory [place] [facility] 5 [facility] ing:LABSPEC Repository 03/16/2018/ [id number] Ambulatory [facility] [place] [facility] 6 [facility] Repository 12/19/2017 [id number] Ambulatory [place] [facility] 1 [facility] ing:MTLAB Repository 07/02/2017 [id number] Ambulatory [facility] [place] 1 [facility] Repository 06/11/2017/ [id number] Ambulatory B[facility] [place] [facility] 5 [facility] Repository 06/06/2017/ [id number] Emergency [place] 8 7 [facility] ing:ED Repository 05/02/2017/ [id number] Emergency [place] 8 1 [facility] ing:ED Repository PAYERS PAYERS ENCOUNTER GUARANTOR PAYER SUBSCRIBER SOURCE 03/24/2018 LAKESHA L Primary LAKESHA L [place] [id number] [place] Insurance:AETNAPolicy GERBERB: [facility] JAZMÍN ks Number: [id number] Hospital [address]Xjh: (827) [id number] Repository [phone] () Date:9948-77-74RY [address] [place] [phone]: 03/24/2018 Secondary NOT GIVENUNK [place] Insurance:SELF PAY [facility] Number: Effective Repository Date:2018-03-17 03/16/2018 LAKESHA L Primary LAKESHA L [place] [id number] [place] Insurance:AETNAPolicy GERBERB: [facility] JAZMÍN ks Number: [id number] Hospital [address]Ogt: (408) [id number] Repository [phone] (HP) Date:4765-73-61BW [address] [place] [phone]: 03/16/2018 Secondary NOT GIVENUNK [place] Insurance:SELF PAY [facility] Number: Effective Repository Date:2018-03-16 03/16/2018 LAKESHA L Primary LAKESHA L [place] [id number] [place] Insurance:AETNAPolicy GERBERDOB: [place], [place] Number: [id number] Hospital [address]Ejt: 330) [id number] Repository [phone] () Date:6557-37-93HB [id number] [place] [address]VF: 03/16/2018 Secondary NOT GIVENUNK [place] Insurance:SELF PAY [facility] Number: Effective Repository Date:2018-03-16 12/19/2017 LAKESHA L Primary LAKESHA L [place] [id number] [place] Insurance:AETNAPolicy GERBERDOB: [place], [place] Number: [id number] Hospital [address]Jbk: 330) [id number] Repository [phone] () Date:3745-74-40[address] [address]GA: 12/19/2017 Secondary NOT GIVENUNK [place] Insurance:SELF PAY [facility] Number: Effective Repository Date:2017-12-19 07/02/2017 LAKESHA L Primary LAKESHA L [place] [id number] Insurance:AETNAPolicy GERBERDOB: [facility] DOGDAWSON Number: [id number] [id number] Repository [address]Olw: (330) Date:3629-48-09AR [phone] () [place] [address]RA: 07/02/2017 Secondary NOT GIVENUNK [place] Insurance:SELF PAY [facility] Number: Effective Repository Date:2017-07-02 06/11/2017 LAKESHA L Primary LAKESHA L [place] [id number] Insurance:AETNAPolicy GERBERDOB: [facility] DOGDAWSON Number: [id number] [id number] Repository [address]Avr: (330) Date:8016-99-39[phone] (HP) [id number] [address]QX: 06/11/2017 Secondary NOT GIVENUNK [place] Insurance:SELF PAY [facility]: Effective Repository Date:2017-06-09 06/06/2017 Lakesha L Primary Alkesha L [place] [id number] Insurance:AETNAPolicy GerberDOB: [facility] [place] Number: [id number] [id number] Repository [address]Daa: (330) Date:5609-41-51UZ [phone] (HP) [address] [address]RF: 06/06/2017 Secondary NOT GIVENUNK [place] Insurance:SELF PAY [facility] Number: Effective Repository Date:2017-06-06 05/02/2017 Lakesha L Primary Lakesha L [place] [id number] Insurance:AETNAPolicy GerberDOB: [facility] [place] Number: [id number], [place] [id number] Repository [address]Jex: (330) Date:9041-62-36WQ [phone] (HP) [id number] [address]AK: 05/02/2017 Secondary NOT GIVENUNK [place] Insurance:SELF PAY [facility] Number: Effective Repository Date:2017-05-02
== END ==
PROVIDERS: Family Provider Family Medicine; PCP Family Medicine; Referring Provider Nurse Practitioner Women's Health; Visit Provider Nurse Practitioner Women's Health
DX: N83.201 Unspecified ovarian cyst, right side (principal)
CPT/HCPCS: 76830; 76856; 93976

== ENCOUNTER → 2018-06-26 10:27 | Outpatient (CLI) | payer OTHER, SELFPAY ==
[2018-03-16 08:38] VITALS: BMI 30.9
[2018-06-26 12:49] LABS: Anion Gap 8 (5-15); BUN 8 mg/dL (7-18); BUN/Creat Ratio 8.6 RATIO (10-20); Calcium,Total 8.8 mg/dL (8.5-10.1); Chloride 110 mmol/L (98-107); Cholesterol 183 mg/dL (200); Creatinine, Serum 0.93 mg/dL (0.55-1.02); EST Glomerular Filtration Rate 74 mL/min (>60); Est Glom Filt Rate - Afr Amer 89 mL/min (>60); Glucose 89 mg/dL (74-106); High Density Lipoprotein 42 mg/dL; Potassium 4.3 mmol/L (3.5-5.1); Sodium Level 143 mmol/L (136-145); Triglycerides 159 mg/dL; Very Low Density Lipoprotein 32 mg/dL (5-40)
== END ==
PROVIDERS: Family Provider Family Medicine; PCP Family Medicine; Referring Provider Family Medicine; Visit Provider Family Medicine
DX: Z00.00 Encounter for general adult medical examination without abnormal findings (principal)
CPT/HCPCS: 36415; 80048; 80061

== ENCOUNTER → 2018-08-05 | Outpatient (CLI) | payer OTHER, SELFPAY ==
[2018-03-16 08:38] VITALS: BMI 30.9
--- NOTE | 2018-08-05 13:52 | US_ITS ---
STUDY: ULTRASOUND OF THE FEMALE PELVIS - COMPLETE REASON FOR EXAM: Female, 32 years old. Pain for 2 weeks LMP: 07/29/2018 TECHNIQUE: Transabdominal and Transvaginal TECHNICAL QUALITY: Adequate. COMPARISON: 03/24/2018 FINDINGS: The uterus is retroverted and is in a midline position. The uterus measures 6.1 x 3.9 x 3.3 cm. Normal uterine cervix. The endometrium measures 6 mm in thickness, and is hyperechoic. There is no demonstrated endometrial mass. There is no demonstrated myometrial mass. I.U.D. - The patient does not have an I.U.D. The right ovary is visualized. The right ovary measures 3.4 x 2.4 x 2.3 cm. A 1.1 x 1.1 cm cyst or dominant follicle is noted. This is unchanged. There is no visualized right adnexal mass or complex lesion. There is normal arterial and normal venous vascularity. The left ovary is visualized. The left ovary measures 2.8 x 2.7 x 2.1 cm. There is no left ovarian cyst or ovarian mass. There is no visualized left adnexal mass or complex lesion. There is normal arterial and normal venous vascularity. There is minimal fluid in the cul-de-sac. The pre void volume of the bladder was 98.4 ml. The post void volume of the bladder was ml. Polycystic ovary disease: No. US/Pelvic (Non ) IMPRESSION: Stable 11 mm right ovary cyst or dominant follicle. Electronically Signed: Aurelio Reilly MD at 8:31 EDT Tel , Service support ,
--- NOTE | 2018-08-05 13:52 | US_ITS ---
STUDY: ULTRASOUND OF THE FEMALE PELVIS - COMPLETE REASON FOR EXAM: Female, 32 years old. Pain for 2 weeks LMP: 07/29/2018 TECHNIQUE: Transabdominal and Transvaginal TECHNICAL QUALITY: Adequate. COMPARISON: 03/24/2018 FINDINGS: The uterus is retroverted and is in a midline position. The uterus measures 6.1 x 3.9 x 3.3 cm. Normal uterine cervix. The endometrium measures 6 mm in thickness, and is hyperechoic. There is no demonstrated endometrial mass. There is no demonstrated myometrial mass. I.U.D. - The patient does not have an I.U.D. The right ovary is visualized. The right ovary measures 3.4 x 2.4 x 2.3 cm. A 1.1 x 1.1 cm cyst or dominant follicle is noted. This is unchanged. There is no visualized right adnexal mass or complex lesion. There is normal arterial and normal venous vascularity. The left ovary is visualized. The left ovary measures 2.8 x 2.7 x 2.1 cm. There is no left ovarian cyst or ovarian mass. There is no visualized left adnexal mass or complex lesion. There is normal arterial and normal venous vascularity. There is minimal fluid in the cul-de-sac. The pre void volume of the bladder was 98.4 ml. The post void volume of the bladder was ml. Polycystic ovary disease: No. US/Transvaginal Non- IMPRESSION: Stable 11 mm right ovary cyst or dominant follicle. Electronically Signed: Aurelio Reilly MD at 8:31 EDT Tel , Service support ,
== END | disposition home or self-care (01) ==
LOC: US 13:51
PROVIDERS: Family Provider Family Medicine; PCP Family Medicine; Referring Provider Nurse Practitioner Women's Health; Visit Provider Nurse Practitioner Women's Health
DX: R10.2 Pelvic and perineal pain (principal)
CPT/HCPCS: 76830; 76856; 93976

== ENCOUNTER → 2019-06-29 | Outpatient (CLI) | payer OTHER, SELFPAY ==
[2018-03-16 08:38] VITALS: BMI 30.9
[2019-06-29 15:06] LABS: Absolute Lymphocyte Count 3.28 X10^3/uL (0.83-4.51); Absolute Neutrophil Count 6.7 X10^3/uL (2.0-7.7); Basophil# 0.06 X10^3/uL; Basophil% 0.5 % (0-1); Eosinophil# 0.11 X10^3/uL; Hematocrit 43.1 % (37-47); Hemoglobin 14.8 g/dL (12.0-15.0); Lymphocyte # 3.28 X10^3/ul (4.0); Lymphocyte % 29.7 % (19-41); Mean Corp Hgb Conc 34.3 g/dL (32-36); Mean Corpuscular Hgb 31.6 pg (27.0-32.0); Mean Corpuscular Volume 92.1 fL (81-99); Mean Platelet Vol. 9.5 fl (6.2-12.0); Monocyte# 0.82 X10^3/uL; Monocyte% 7.4 % (0-10); NRBC Flagged by Analyzer 0 % (0-5); Neutrophil # 6.74 X10^3/uL (2.7-7.7); Platelet Count 308 K/mm3 (150-450); RBC Distribution Width CV 12.2 % (11.6-14.6); RBC Distribution Width SD 41.1 fl (35.1-43.9); Red Blood Count 4.68 M/mm3 (4.2-5.4); White Blood Count 11.1 K/mm3 (4.4-11.0)
[2019-06-29 15:34] LABS: Vitamin D,25 Hydroxy 19.9 ng/mL
[2019-06-29 15:48] LABS: ALB/GLOB Ratio 1.1 RATIO (0.9-2.4); AST(SGOT) 18 U/L (15-37); Alanine Aminotransfer ALT/SGPT 55 U/L (13-56); Albumin, Serum 3.7 g/dL (3.2-5.0); Alkaline Phosphatase 78 U/L (45-117); Anion Gap 7 (5-15); BUN 12 mg/dL (7-18); BUN/Creat Ratio 13.8 RATIO (10-20); Calcium,Total 9.3 mg/dL (8.5-10.1); Chloride 107 mmol/L (98-107); Creatinine, Serum 0.87 mg/dL (0.55-1.02); EST Glomerular Filtration Rate 79 mL/min (>60); Est Glom Filt Rate - Afr Amer 95 mL/min (>60); Globulin 3.5 g/dL (2.2-4.2); Glucose 107 mg/dL (74-106); Potassium 3.9 mmol/L (3.5-5.1); Protein, Total 7.2 g/dL (6.4-8.2); Sodium Level 138 mmol/L (136-145); Thyroid Stim Hormone (TSH) 1.74 uIU/mL (0.358-3.74)
== END | disposition home or self-care (01) ==
LOC: MFPLAB 14:12
PROVIDERS: PCP Family Medicine; Referring Provider Family Medicine; Visit Provider Family Medicine
DX: I10 Essential (primary) hypertension (principal); G25.81 Restless legs syndrome; F31.9 Bipolar disorder, unspecified
CPT/HCPCS: 36415; 80053; 82306; 84443; 85025

== ENCOUNTER → 2019-09-03 | Outpatient (CLI) | payer OTHER, SELFPAY ==
[2018-03-16 08:38] VITALS: BMI 30.9
[2019-09-03 12:20] LABS: Absolute Lymphocyte Count 2.35 X10^3/uL (0.83-4.51); Absolute Neutrophil Count 4.9 X10^3/uL (2.0-7.7); Basophil# 0.04 X10^3/uL; Basophil% 0.5 % (0-1); Eosinophil# 0.06 X10^3/uL; Eosinophils% 0.7 % (0-5); Hematocrit 45.3 % (37-47); Hemoglobin 15.5 g/dL (12.0-15.0); Lymphocyte # 2.35 X10^3/ul (4.0); Lymphocyte % 29.3 % (19-41); Mean Corp Hgb Conc 34.2 g/dL (32-36); Mean Corpuscular Hgb 31.3 pg (27.0-32.0); Mean Corpuscular Volume 91.5 fL (81-99); Mean Platelet Vol. 9.5 fl (6.2-12.0); Monocyte# 0.59 X10^3/uL; Monocyte% 7.4 % (0-10); NRBC Flagged by Analyzer 0 % (0-5); Neutrophil # 4.94 X10^3/uL (2.7-7.7); Neutrophil % 61.7 % (47-70); Platelet Count 286 K/mm3 (150-450); RBC Distribution Width CV 12.4 % (11.6-14.6); RBC Distribution Width SD 40.8 fl (35.1-43.9); Red Blood Count 4.95 M/mm3 (4.2-5.4)
[2019-09-03 13:13] LABS: Anion Gap 5 (5-15); BUN 10 mg/dL (7-18); BUN/Creat Ratio 11.1 RATIO (10-20); Calcium,Total 9.2 mg/dL (8.5-10.1); Chloride 108 mmol/L (98-107); Cholesterol 184 mg/dL (200); EST Glomerular Filtration Rate 76 mL/min (>60); Est Glom Filt Rate - Afr Amer 92 mL/min (>60); Glucose 100 mg/dL (74-106); High Density Lipoprotein 46 mg/dL; Potassium 4.4 mmol/L (3.5-5.1); Sodium Level 140 mmol/L (136-145); Thyroid Stim Hormone (TSH) 1.06 uIU/mL (0.358-3.74); Triglycerides 162 mg/dL; Very Low Density Lipoprotein 32 mg/dL (5-40)
== END | disposition home or self-care (01) ==
LOC: MTLAB 11:13
PROVIDERS: PCP Family Medicine; Referring Provider Family Medicine; Visit Provider Family Medicine
DX: I10 Essential (primary) hypertension (principal); R61 Generalized hyperhidrosis
CPT/HCPCS: 36415; 80048; 80061; 84443; 85025